=== PATIENT | male | born 2005 | race Caucasian/White ===

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

== ENCOUNTER → 2024-05-31 | Outpatient (REF) | payer OTHER | LOC: M LAB REF 16:09 | PROVIDERS: ATTEND Pediatrics | DX: J03.90 Acute tonsillitis, unspecified (principal) ==

== ENCOUNTER → 2024-12-29 | Outpatient (CLI) | payer OTHER ==
[~2024-12-29] MED LIST changes: +ISOVUE-370 76% 100 ML VIAL As Ordered ONE
== END ==
LOC: M RAD 08:25
PROVIDERS: ATTEND Student in an Organized Health Care Education/Training Program
DX: R10.12 Left upper quadrant pain (principal)
CPT/HCPCS: 74160; Q9967

== ENCOUNTER → 2025-05-04 | Outpatient (REF) | payer OTHER ==
[~2025-05-04] MED LIST changes: -ISOVUE-370 76% 100 ML VIAL As Ordered ONE
== END ==
LOC: M SFHCLERA 14:20
PROVIDERS: ATTEND Student in an Organized Health Care Education/Training Program
DX: Z01.89 Encounter for other specified special examinations (principal)